=== PATIENT | male | born 1975 | race African-American/Black ===

== ENCOUNTER 2017-04-12 14:25 | Emergency (ER) | payer SELFPAY ==
[~2017-04-12] VITALS: Ht 172.7 cm; Wt 60.0 kg
[2017-04-12 14:31] VITALS: BP 122/80; PULSE 59; RESP 14; TEMP 98.8; O2SAT 99
[2017-04-12] MEDS ORDERED: SUBO8MIS SL (14:36)
[2017-04-12] MEDS ORDERED: LEXA10TA PO (14:36)
[2017-04-12] MEDS ORDERED: CLON1TAB PO (14:36)
--- NOTE | 2017-04-12 14:43 | PD ---
HPI Chief Complaint: Psychiatric Symptoms Time Seen by Provider: 14:29 Travel History International Travel<30 days: No Contact w/Intl Traveler<30days: No Traveled to known affect area: No History of Present Illness HPI 41-year-old male was Loving acted and brought in for psychiatric evaluation. Patient has history of depression and was suicidal this morning. Patient denies any medical problem. Patient denies any headache. Patient denies any chest pain or shortness of breath. Patient denies abdominal pain. Patient denies any recent injury. Patient denies any fever chills. Patient states that he takes Lexapro daily. Patient denies any recent drug overdose. Patient denies any illicit drug abuse. Patient denies alcohol abuse. Patient states that he is on Suboxone daily. PFSH Past Medical History Depression: Yes Past Surgical History Surgical History: No Previous Surgery Social History Alcohol Use: Yes (RARE) Tobacco Use: No Substance Use: No (HX MARIJUANA) Allergies-Medications (Allergen,Severity, Reaction): Coded Allergies: No Known Allergies (Unverified , 04/12/17) Reported Meds & Prescriptions Reported Meds & Active Scripts Active Reported Suboxone Sublingual Film (Buprenorphine-Naloxone Sublingual Film) 8-2 Mg Film 1 Film SL Unique ID number required: Clonazepam 1 Mg Tab 1 Mg PO TID Lexapro (Escitalopram Oxalate) 10 Mg Tab 10 Mg PO DAILY Review of Systems General / Constitutional: No: Fever Eyes: No: Visual changes HENT: No: Headaches Cardiovascular: No: Chest Pain or Discomfort Respiratory: No: Shortness of Breath Gastrointestinal: No: Abdominal Pain Genitourinary: No: Dysuria Musculoskeletal: No: Pain Skin: No Rash Neurologic: No: Weakness Psychiatric: No: Depression Endocrine: No: Polydipsia Hematologic/Lymphatic: No: Easy Bruising Physical Exam Narrative GENERAL: Well-nourished, well-developed patient. SKIN: Focused skin assessment warm/dry. HEAD: Normocephalic. EYES: No scleral icterus. No injection or drainage. NECK: Supple, trachea midline. No JVD or lymphadenopathy. CARDIOVASCULAR: Regular rate and rhythm without murmurs, gallops, or rubs. RESPIRATORY: Breath sounds equal bilaterally. No accessory muscle use. GASTROINTESTINAL: Abdomen soft, non-tender, nondistended. MUSCULOSKELETAL: No cyanosis, or edema. BACK: Nontender without obvious deformity. No CVA tenderness. Neurologic exam normal. Data Data Last Documented VS Vital Signs Date Time Temp Pulse Resp B/P (MAP) Pulse Ox O2 Delivery O2 Flow Rate FiO2 04/12/17 14:31 98.8 59 14 122/80 (94) 99 Orders Orders Complete Blood Count With Diff (04/12/17 14:34) Comprehensive Metabolic Panel (04/12/17 14:34) Psych Screen (04/12/17 14:34) Drug Screen, Random Urine (04/12/17 14:34) Labs Laboratory Tests Test 04/12/17 14:40 04/12/17 14:45 White Blood Count 8.8 TH/MM3 Red Blood Count 4.63 MIL/MM3 Hemoglobin 12.9 GM/DL Hematocrit 39.6 % Mean Corpuscular Volume 85.4 FL Mean Corpuscular Hemoglobin 27.8 PG Mean Corpuscular Hemoglobin Concent 32.5 % Red Cell Distribution Width 14.1 % Platelet Count 240 TH/MM3 Mean Platelet Volume 9.1 FL Neutrophils (%) (Auto) 62.2 % Lymphocytes (%) (Auto) 28.0 % Monocytes (%) (Auto) 6.5 % Eosinophils (%) (Auto) 2.3 % Basophils (%) (Auto) 1.0 % Neutrophils # (Auto) 5.5 TH/MM3 Lymphocytes # (Auto) 2.5 TH/MM3 Monocytes # (Auto) 0.6 TH/MM3 Eosinophils # (Auto) 0.2 TH/MM3 Basophils # (Auto) 0.1 TH/MM3 CBC Comment DIFF FINAL Differential Comment Blood Urea Nitrogen 16 MG/DL Creatinine 1.04 MG/DL Random Glucose 82 MG/DL Total Protein 8.1 GM/DL Albumin 4.5 GM/DL Calcium Level 8.8 MG/DL Alkaline Phosphatase 100 U/L Aspartate Amino Transf (AST/SGOT) 30 U/L Alanine Aminotransferase (ALT/SGPT) 26 U/L Total Bilirubin 0.5 MG/DL Sodium Level 139 MEQ/L Potassium Level 4.0 MEQ/L Chloride Level 103 MEQ/L Carbon Dioxide Level 30.7 MEQ/L Anion Gap 5 MEQ/L Estimat Glomerular Filtration Rate 96 ML/MIN Urine Opiates Screen NEG Urine Barbiturates Screen NEG Urine Amphetamines Screen NEG Urine Benzodiazepines Screen POS Urine Cocaine Screen NEG Urine Cannabinoids Screen NEG MDM Medical Decision Making Medical Screen Exam Complete: Yes Emergency Medical Condition: Yes Interpretation(s) 6541 PM. CBC within normal limit. CMP within normal limit. Urine drug screen positive for benzodiazepine. Differential Diagnosis Differential diagnosis including substance-induced mood disorder, depression, suicidal, drug overdose. Narrative Course 41-year-old male was Loving acted for suicidal threat. Patient has history of depression. Patient denies any drug overdose. Patient states that he is on Suboxone 1642 PM. Patient is medically cleared for psychiatric evaluation and disposition. Luis Miguel Poole MD Apr 12, 2017 14:43
[2017-04-12 15:18] LABS: AUTOMATED NEUTROPHIL # 5.5 TH/MM3 (1.8-7.7); BASOPHIL # 0.1 TH/MM3 (0-0.2); EOSINOPHIL # 0.2 TH/MM3 (0-0.4); EOSINOPHIL % 2.3 % (0.0-4.0); HEMATOCRIT 39.6 % (39.0-51.0); HEMO FLAGS DIFF FINAL; LYMPHOCYTE # 2.5 TH/MM3 (1.0-4.8); MEAN CELL VOLUME 85.4 FL (80.0-100.0); MEAN CORPUSCULAR HEMOGLOBIN 27.8 PG (27.0-34.0); MEAN CORPUSCULAR HGB CONC 32.5 % (32.0-36.0); MONO % 6.5 % (0.0-8.0); NEUT % 62.2 % (16.0-70.0); PLATELET COUNT 240 TH/MM3 (150-450); RED BLOOD COUNT 4.63 MIL/MM3 (4.50-5.90); RED CELL DISTRIBUTION WIDTH 14.1 % (11.6-17.2); WHITE BLOOD COUNT 8.8 TH/MM3 (4.0-11.0)
[2017-04-12 15:47] LABS: ANION GAP 5 MEQ/L (5-15); AST (GOT) 30 U/L (15-37); BICARBONATE 30.7 MEQ/L (21.0-32.0); BLOOD UREA NITROGEN 16 MG/DL (7-18); CHLORIDE 103 MEQ/L (98-107); GLOMERULAR FILTRATION RATE 96 ML/MIN (>89); SODIUM (NA) 139 MEQ/L (136-145)
[2017-04-12 15:48] LABS: ALKALINE PHOSPHATASE 100 U/L (45-117); ALT (GPT) 26 U/L (12-78); TOTAL BILIRUBIN ADULT 0.5 MG/DL (0.2-1.0)
[2017-04-12 18:00] VITALS: BP 127/86; PULSE 65; RESP 14; O2SAT 99
[2017-04-12 23:09] VITALS: BP 95/51; PULSE 69; RESP 16; TEMP 98.8; O2SAT 99
[2017-04-13 02:13] VITALS: BP 109/70; PULSE 75; RESP 16; TEMP 99.1; O2SAT 96
[2017-04-13 05:04] VITALS: BP 90/51; PULSE 65; RESP 16; TEMP 98.3; O2SAT 97
--- NOTE | 2017-04-13 13:40 | PD ---
History of Present Illness Chief Complaint: Psychiatric Symptoms Time Seen by Provider: 13:30 Travel History International Travel<30 Days: No Contact w/Intl Traveler<30days: No Known affected area: No Legal Status Legal Status: Loving Act Loving Act Signed By: [facility] History of Present Illness: 41-year-old male luly in under a Loving act for suicidal ideation. Patient is getting a divorce and he feels like he has wasted 10 years of his life. He has moved back in with his parents, and [facility]. Patient has been observed and evaluated overnight and he is maintaining the position that he currently has no suicidal or homicidal ideation, plan or intent. He is noted to be positive for benzodiazepines and admits to taking Suboxone. Patient has a history of drug abuse. At this time, he is not clinically intoxicated. He is stating that he will not harm himself or anyone else and he is competent to verbally contract for safety. He would like to return to his parents home and states they are supportive. PFSH Past Medical History Depression: Yes Past Surgical History Surgical History: No Previous Surgery Psychiatric History Psychiatric History Hx Psychiatric Treatment: HX: DEPRESSION, ANXIETY History of Inpatient Treatment: No Guns or firearms in home: No Social History Hx Alcohol Use: Yes (RARE) Hx Tobacco Use: No Hx Substance Use: Yes Hx of Substance Use Treatment: Yes Allergies-Medications (Allergen,Severity, Reaction): Coded Allergies: naloxegol (Verified Allergy, Unknown, 04/12/17) Per pt. Reported Meds & Prescriptions Reported Meds & Active Scripts Active Reported Suboxone Sublingual Film (Buprenorphine-Naloxone Sublingual Film) 8-2 Mg Film 1 Film SL Unique ID number required: Clonazepam 1 Mg Tab 1 Mg PO TID Lexapro (Escitalopram Oxalate) 10 Mg Tab 10 Mg PO DAILY Review of Systems Except as stated in HPI: all other systems reviewed are Neg Exam Alert: Yes [place]: Person, Place, Date, Situation Mood: Calm Affect: Appropriate Speech: Clear Eye Contact: Normal Memory Intact: Immediate, Recent, Remote Delusions: No Insight/Judgement Adequate MDM Medical Decision Making Medical Record Reviewed: Yes Assessment/Plan Patient interviewed at bedside, case discussed with nurse and medical record reviewed. Even though the patient may have been admitting to suicidal ideation when he first arrived, he was also more likely intoxicated with benzodiazepines at that time. Currently, he is calm, pleasant and cooperative. He denies any suicidal or homicidal ideation, plan or intent. He is verbally rebecca for safety and he is competent to do so. He demonstrates no psychotic symptoms or cognitive impairments. He would like to go home and this physician does not feel he meets criteria for Loving act or involuntary psychiatric hospitalization. Patient was encouraged to return to a treatment center in [place] for assistance for his drug abuse. Orders Orders Complete Blood Count With Diff (04/12/17 14:34) Comprehensive Metabolic Panel (04/12/17 14:34) Psych Screen (04/12/17 14:34) Drug Screen, Random Urine (04/12/17 14:34) Diet Regular Basic (04/12/17 Dinner) Diet Regular Basic (04/13/17 Breakfast) Diet Regular Basic (04/13/17 Lunch) Diet Regular Basic (04/13/17 Dinner) Results Vital Signs Date Time Temp Pulse Resp B/P (MAP) Pulse Ox O2 Delivery O2 Flow Rate FiO2 04/13/17 11:37 04/13/17 05:04 98.3 65 16 90/51 (64) 97 04/13/17 02:13 99.1 75 16 109/70 (83) 96 04/12/17 23:09 98.8 69 16 95/51 (66) 99 Room Air 04/12/17 18:00 65 14 127/86 (100) 99 Room Air 04/12/17 14:31 98.8 59 14 122/80 (94) 99 Laboratory Tests Test 04/12/17 14:40 04/12/17 14:45 White Blood Count 8.8 Red Blood Count 4.63 Hemoglobin 12.9 Hematocrit 39.6 Mean Corpuscular Volume 85.4 Mean Corpuscular Hemoglobin 27.8 Mean Corpuscular Hemoglobin Concent 32.5 Red Cell Distribution Width 14.1 Platelet Count 240 Mean Platelet Volume 9.1 Neutrophils (%) (Auto) 62.2 Lymphocytes (%) (Auto) 28.0 Monocytes (%) (Auto) 6.5 Eosinophils (%) (Auto) 2.3 Basophils (%) (Auto) 1.0 Neutrophils # (Auto) 5.5 Lymphocytes # (Auto) 2.5 Monocytes # (Auto) 0.6 Eosinophils # (Auto) 0.2 Basophils # (Auto) 0.1 CBC Comment DIFF FINAL Differential Comment Blood Urea Nitrogen 16 Creatinine 1.04 Random Glucose 82 Total Protein 8.1 Albumin 4.5 Calcium Level 8.8 Alkaline Phosphatase 100 Aspartate Amino Transf (AST/SGOT) 30 Alanine Aminotransferase (ALT/SGPT) 26 Total Bilirubin 0.5 Sodium Level 139 Potassium Level 4.0 Chloride Level 103 Carbon Dioxide Level 30.7 Anion Gap 5 Estimat Glomerular Filtration Rate 96 Urine Opiates Screen NEG Urine Barbiturates Screen NEG Urine Amphetamines Screen NEG Urine Benzodiazepines Screen POS Urine Cocaine Screen NEG Urine Cannabinoids Screen NEG Diagnosis Primary Impression: Adjustment disorder with mixed disturbance of emotions and conduct Additional Impression: Benzodiazepine abuse Problem Qualifiers Jun Hillman MD Apr 13, 2017 13:40
--- NOTE | 2017-04-13 14:44 | PD ---
Physical Exam Time Seen by Provider: 14:[address] Hillman has evaluated the patient, lifted Loving act and the patient will be discharged home. Data Data Last Documented VS Vital Signs Date Time Temp Pulse Resp B/P (MAP) Pulse Ox O2 Delivery O2 Flow Rate FiO2 04/13/17 11:37 04/13/17 05:04 98.3 65 16 97 04/12/17 23:09 Room Air Orders Orders Complete Blood Count With Diff (04/12/17 14:34) Comprehensive Metabolic Panel (04/12/17 14:34) Psych Screen (04/12/17 14:34) Drug Screen, Random Urine (04/12/17 14:34) Diet Regular Basic (04/12/17 Dinner) Diet Regular Basic (04/13/17 Breakfast) Diet Regular Basic (04/13/17 Lunch) Diet Regular Basic (04/13/17 Dinner) Labs Laboratory Tests Test 04/12/17 14:40 04/12/17 14:45 White Blood Count 8.8 TH/MM3 Red Blood Count 4.63 MIL/MM3 Hemoglobin 12.9 GM/DL Hematocrit 39.6 % Mean Corpuscular Volume 85.4 FL Mean Corpuscular Hemoglobin 27.8 PG Mean Corpuscular Hemoglobin Concent 32.5 % Red Cell Distribution Width 14.1 % Platelet Count 240 TH/MM3 Mean Platelet Volume 9.1 FL Neutrophils (%) (Auto) 62.2 % Lymphocytes (%) (Auto) 28.0 % Monocytes (%) (Auto) 6.5 % Eosinophils (%) (Auto) 2.3 % Basophils (%) (Auto) 1.0 % Neutrophils # (Auto) 5.5 TH/MM3 Lymphocytes # (Auto) 2.5 TH/MM3 Monocytes # (Auto) 0.6 TH/MM3 Eosinophils # (Auto) 0.2 TH/MM3 Basophils # (Auto) 0.1 TH/MM3 CBC Comment DIFF FINAL Differential Comment Blood Urea Nitrogen 16 MG/DL Creatinine 1.04 MG/DL Random Glucose 82 MG/DL Total Protein 8.1 GM/DL Albumin 4.5 GM/DL Calcium Level 8.8 MG/DL Alkaline Phosphatase 100 U/L Aspartate Amino Transf (AST/SGOT) 30 U/L Alanine Aminotransferase (ALT/SGPT) 26 U/L Total Bilirubin 0.5 MG/DL Sodium Level 139 MEQ/L Potassium Level 4.0 MEQ/L Chloride Level 103 MEQ/L Carbon Dioxide Level 30.7 MEQ/L Anion Gap 5 MEQ/L Estimat Glomerular Filtration Rate 96 ML/MIN Urine Opiates Screen NEG Urine Barbiturates Screen NEG Urine Amphetamines Screen NEG Urine Benzodiazepines Screen POS Urine Cocaine Screen NEG Urine Cannabinoids Screen NEG MDM Supervised Visit with [facility]: No Narrative Course Dr. Hillman has evaluated the patient, lifted [facility] and the patient will be discharged home. Patient contracts for safety. He denies suicidal or homicidal ideations. He will be given information for outpatient follow-up at [facility]. His mother is coming to pick him up. He has family and friends for support. Patient is medically cleared for discharge. Diagnosis Primary Impression: Adjustment disorder with mixed disturbance of emotions and conduct Additional Impression: Benzodiazepine abuse Referrals: [facility] (Out patient) Primary Care Physician Psychiat[facility] Patient Instructions: Benzodiazepine Abuse (ED), General Instructions, Mood Disorders (ED) Additional Instruction: Contract safety to your self and others Stop abusing and using drugs Follow-up with psychiatry Follow-up with primary care provider Follow-up with Re[facility] Cox Return to the emergency department immediately with worsening of symptoms Med/Other Pt SpecificInfo: No Meds Exist/No RX given Disposition: 01 DISCHARGE HOME Condition: Stable Adriane Campos Apr 13, 2017 14:44
[2017-04-13 15:09] VITALS: BP 117/59; PULSE 82; RESP 18
[2017-04-13 16:12] VITALS: BP 117/59; TEMP 98.8
== END 2017-04-13 16:16 | disposition home or self-care (01) ==
LOC: NEPE 14:25 → NEPJ 04-13 16:16
DX: F43.25 Adjustment disorder with mixed disturbance of emotions and conduct (principal); F13.10 Sedative, hypnotic or anxiolytic abuse, uncomplicated; Z79.899 Other long term (current) drug therapy
CPT/HCPCS: 80053; 80307; 85025; 99284